=== PATIENT | male | born 1955 | race Two or more races ===

== ENCOUNTER 2021-06-20 11:46 | Inpatient (IN) | payer OTHER, MEDICAID ==
[~2021-06-20] VITALS: Ht 170.2 cm; Wt 57.0 kg
[2021-06-20] MEDS ORDERED: SODIUM CHLORIDE 0.9% 1,000 ML IVB ONE (12:15)
[2021-06-20 12:57] LABS: Basophils # (auto) 0 10 ^3/uL (0-0.2); Basophils % (auto) 0.2 % (0.0-2.0); Eosinophils # (auto) 0 10 ^3/uL (0-0.8); Eosinophils % (auto) 0.2 % (0.0-7.0); Hematocrit 37.1 % (41.0-53.0); Hemoglobin 11.7 g/dL (13.5-17.5); Lymphocytes # (auto) 2.1 10 ^3/uL (0.4-5.4); Lymphocytes % (auto) 15.1 % (10.0-50.0); Mean Corpuscular Hemoglobin 31.1 pg (28.0-32.0); Mean Corpuscular Hgb Conc. 31.6 g/dL (32.0-36.0); Mean Corpuscular Volume 98.3 fL (80.0-100.0); Monocytes # (auto) 0.6 10 ^3/uL (0-1.3); Monocytes % (auto) 4.3 % (0.0-12.0); Neutrophils # (auto) 11.1 10 ^3/uL (1.6-8.6); Neutrophils % (auto) 80.2 % (37.0-80.0); Red Blood Cells 3.77 10^6/uL (4.5-5.90); Red Cell Distribution Width 15.6 % (11.8-14.3); White Blood Cell 13.9 10^3/uL (4.4-10.8)
[2021-06-20 13:13] LABS: Albumin 4.2 g/dL (3.4-5.0); Calcium 10.3 mg/dL (8.5-10.1); Potassium 4.1 mmol/L (3.5-5.1)
[2021-06-20 13:21] LABS: BUN/Creatinine Ratio 29.6; Total Protein 8.5 g/dL (6.4-8.2)
[2021-06-20] MEDS ORDERED: ONDANSETRON HCL 4 MG/2 ML VIAL ONE (13:37)
[2021-06-20] MEDS ORDERED: ONDANSETRON HCL 4 MG/2 ML VIAL IV ONE (13:45)
[2021-06-20] MEDS ORDERED: SODIUM CHLORIDE 0.9% 1,000 ML IV ONE (14:00)
[2021-06-20 15:07] LABS: Urine Bacteria NONE SEEN /hpf (None Seen); Urine Blood Negative /uL (Negative); Urine Specific Gravity 1.028 (1.001-1.035); Urine WBC <1 /hpf (0 - 3)
[2021-06-20] MEDS ORDERED: InsuLIN R (HUMAN) 100 UNITS in SODIUM CHL 0.9% 99 ML IV SCH (15:15)
[2021-06-20] MEDS ORDERED: DEXTROSE (50%) 50ML SYRG IV PRN ×2 (15:15→23:15)
[2021-06-20] MEDS ORDERED: InsuLIN REG 1unit/0.01ml Soln (100units/ml) IV ONE (15:15)
[2021-06-20 15:29] LABS: Alcohol, Urine < 3.0 mg/dL (0-10); Amphetamine Screen, Urine NEGATIVE (NEGATIVE); Barbiturate Scree,Urine NEGATIVE (NEGATIVE); Benzodiazephine Screen, Urine NEGATIVE (NEGATIVE); Cannabinoid Screen, Urine NEGATIVE (NEGATIVE); Cocaine Screen, Urine NEGATIVE (NEGATIVE); Opiate Scree,Urine NEGATIVE (NEGATIVE); Phencyclidine Screen, Urine NEGATIVE (NEGATIVE)
[2021-06-20] MEDS: ACCU-CHEK COMFORT CURVE STRIP VI SCH ×5 (15:43→22:21)
[2021-06-20] MEDS: SODIUM CHLORIDE 0.9% 1,000 ML IV SCH ×4 (16:00→23:22)
[2021-06-20] MEDS ORDERED: SODIUM CHLORIDE 0.9% 1,000 ML IV SCH (19:15)
[2021-06-20 21:47] LABS: BUN/Creatinine Ratio 40.4; Calcium 8.3 mg/dL (8.5-10.1)
[2021-06-20] MEDS ORDERED: POTASSIUM CHL 10MEQ/50ML 50 ML IV PRN (23:15)
[2021-06-20] MEDS: InsuLIN R (HUMAN) 100 UNITS in SODIUM CHL 0.9% 99 ML IV SCH (23:15)
[2021-06-20] MEDS ORDERED: SODIUM CHLORIDE 0.9% 2,000 ML IV ONE (23:30)
[2021-06-21] MEDS ORDERED: ONDANSETRON HCL 4 MG/2 ML VIAL IV PRN
[2021-06-21] MEDS ORDERED: hydrALAZINE HCL 20 MG/ML VL IV PRN (00:15)
[2021-06-21] MEDS: ACCU-CHEK COMFORT CURVE STRIP VI SCH ×12 (00:31→23:18)
[2021-06-21] MEDS: POTASSIUM CHL 10MEQ/50ML 50 ML IV SCH ×4 (00:32→03:38)
[2021-06-21 00:49] LABS: BUN/Creatinine Ratio 32.8; Calcium 8.6 mg/dL (8.5-10.1); Magnesium 2.1 mg/dL (1.6-2.6); Phosphorus 2.5 mg/dL (2.5-4.90); Potassium 3.4 mmol/L (3.5-5.1)
[2021-06-21 00:51] LABS: Urine Bacteria NONE SEEN /hpf (None Seen); Urine Blood Negative /uL (Negative); Urine Specific Gravity 1.025 (1.001-1.035); Urine WBC 2 /hpf (0 - 3)
[2021-06-21] MEDS: D5W/SOD CHL 0.45%/KCL 20MEQ 1,000 ML IV SCH ×2 (01:30→06:27)
[2021-06-21] MEDS: SODIUM CHLORIDE 0.9% 1,000 ML IV SCH ×5 (01:31→10:11)
[2021-06-21] MEDS ORDERED: dilTIAZem 25 MG/5 ML VIAL IV ONE ×2 (01:45)
[2021-06-21] MEDS ORDERED: SODIUM CHLORIDE 0.9% 1,000 ML IV SCH (03:15)
[2021-06-21] MEDS: LABETALOL HCL 5 MG/ML 4ML SYRINGE IV PRN (04:36)
[2021-06-21] MEDS: InsuLIN R (HUMAN) 100 UNITS in SODIUM CHL 0.9% 99 ML IV SCH (05:49)
[2021-06-21] MEDS ORDERED: DEXTROSE (50%) 50ML SYRG IV PRN (06:30)
[2021-06-21] MEDS: InsuLIN REG 1unit/0.01ml Soln (100units/ml) SC SCH ×4 (07:00→21:29)
[2021-06-21] MEDS ORDERED: ACCU-CHEK COMFORT CURVE STRIP VI SCH (07:00)
[2021-06-21 09:30] VITALS: BP 160/61
[2021-06-21] MEDS ORDERED: CARVEDILOL 3.125 MG TAB PO SCH (10:00)
[2021-06-21] MEDS: FAMOTIDINE (10MG/ML) 2ML VL IV SCH (10:11)
[2021-06-21 10:12] LABS: Basophils # (auto) 0.1 10 ^3/uL (0-0.2); Basophils % (auto) 0.3 % (0.0-2.0); Eosinophils # (auto) 0 10 ^3/uL (0-0.8); Eosinophils % (auto) 0.1 % (0.0-7.0); Hemoglobin 9.1 g/dL (13.5-17.5); Lymphocytes # (auto) 1.7 10 ^3/uL (0.4-5.4); Lymphocytes % (auto) 9.3 % (10.0-50.0); Mean Corpuscular Hemoglobin 31.9 pg (28.0-32.0); Mean Corpuscular Hgb Conc. 33.6 g/dL (32.0-36.0); Monocytes # (auto) 0.9 10 ^3/uL (0-1.3); Monocytes % (auto) 5.2 % (0.0-12.0); Neutrophils # (auto) 15.4 10 ^3/uL (1.6-8.6); Neutrophils % (auto) 85.1 % (37.0-80.0); Red Blood Cells 2.84 10^6/uL (4.5-5.90); White Blood Cell 18.1 10^3/uL (4.4-10.8)
[2021-06-21] MEDS: ENOXAPARIN SOD 40 MG/0.4 ML SYRINGE SC SCH (10:13)
[2021-06-21 10:50] LABS: Potassium 3.6 mmol/L (3.5-5.1)
[2021-06-21 11:03] LABS: BUN/Creatinine Ratio 22.9; Bilirubin, Total 1.1 mg/dL (0.2-1.0); Calcium 8.1 mg/dL (8.5-10.1); Total Protein 6.2 g/dL (6.4-8.2)
[2021-06-21] MEDS ORDERED: CEFTRIAXONE SODIUM 2 GM in D5W 5% 50 ML IV ONE (11:15)
[2021-06-21] MEDS ORDERED: VANCOMYCIN 1GM/250ML 250 ML IV ONE (11:15)
[2021-06-21] MEDS ORDERED: VANCOMYCIN PER PHARMACY 0 MG IV SCH (11:15)
[2021-06-21 12:07] LABS: Calcium 8.2 mg/dL (8.5-10.1)
[2021-06-21 12:09] LABS: BUN/Creatinine Ratio 23.9
[2021-06-21] MEDS: cloNIDine HCL 0.1 MG TAB PO SCH ×3 (12:25→23:21)
[2021-06-21 18:32] LABS: BUN/Creatinine Ratio 30.2; Calcium 7.7 mg/dL (8.5-10.1); Potassium 3.6 mmol/L (3.5-5.1)
[2021-06-21 21:10] VITALS: BP 148/63
[2021-06-21] MEDS: VANCOMYCIN 1GM/250ML 250 ML IV SCH (21:24)
[2021-06-21 22:00] VITALS: BP 108/51
[2021-06-21] MEDS: ACETAMINOPHEN 325 MG TAB PO PRN (23:37)
[2021-06-22] MEDS: SODIUM CHLORIDE 0.9% 1,000 ML IV SCH ×4 (01:15→22:05)
[2021-06-22 05:00] VITALS: BP 138/49
[2021-06-22] MEDS: cloNIDine HCL 0.1 MG TAB PO SCH (05:50)
[2021-06-22] MEDS: ACCU-CHEK COMFORT CURVE STRIP VI SCH ×4 (05:50→23:39)
[2021-06-22] MEDS: InsuLIN REG 1unit/0.01ml Soln (100units/ml) SC SCH ×4 (06:04→22:16)
[2021-06-22] MEDS: VANCOMYCIN 1GM/250ML 250 ML IV SCH (08:30)
[2021-06-22] MEDS: ENOXAPARIN SOD 40 MG/0.4 ML SYRINGE SC SCH (08:31)
[2021-06-22] MEDS: FAMOTIDINE (10MG/ML) 2ML VL IV SCH (08:31)
[2021-06-22 09:00] VITALS: BP 180/63
[2021-06-22] MEDS: cefTRIAXone 1GM/50ML D5W 50 ML IV SCH (10:00)
[2021-06-22] MEDS: LABETALOL HCL 5 MG/ML 4ML SYRINGE IV PRN ×4 (10:02→22:06)
[2021-06-22 11:45] LABS: Folate (Folic Acid) > 24.00 ng/mL (5.38-24)
[2021-06-22 13:05] LABS: Basophils # (auto) 0.1 10 ^3/uL (0-0.2); Basophils % (auto) 0.5 % (0.0-2.0); Eosinophils # (auto) 0.2 10 ^3/uL (0-0.8); Eosinophils % (auto) 1.3 % (0.0-7.0); Hematocrit 23.4 % (41.0-53.0); Hemoglobin 7.8 g/dL (13.5-17.5); Lymphocytes # (auto) 1.4 10 ^3/uL (0.4-5.4); Lymphocytes % (auto) 10.3 % (10.0-50.0); Mean Corpuscular Hemoglobin 32.3 pg (28.0-32.0); Mean Corpuscular Hgb Conc. 33.5 g/dL (32.0-36.0); Mean Corpuscular Volume 96.4 fL (80.0-100.0); Monocytes # (auto) 0.5 10 ^3/uL (0-1.3); Monocytes % (auto) 3.6 % (0.0-12.0); Neutrophils # (auto) 11.2 10 ^3/uL (1.6-8.6); Neutrophils % (auto) 84.3 % (37.0-80.0); Nucleated Red Blood Cells % 0.1 %; Red Blood Cells 2.42 10^6/uL (4.5-5.90); White Blood Cell 13.2 10^3/uL (4.4-10.8)
[2021-06-22 13:17] VITALS: BP 152/73
[2021-06-22 13:26] LABS: Albumin 2.5 g/dL (3.4-5.0); BUN/Creatinine Ratio 28.6; Calcium 7.9 mg/dL (8.5-10.1); Potassium 3.2 mmol/L (3.5-5.1)
[2021-06-22 13:29] LABS: Bilirubin, Total 0.7 mg/dL (0.2-1.0); Total Protein 5.5 g/dL (6.4-8.2)
[2021-06-22 17:00] VITALS: BP 168/63
[2021-06-22] MEDS: ACETAMINOPHEN 325 MG TAB PO PRN (18:22)
[2021-06-22 22:00] VITALS: BP 167/73
[2021-06-22] MEDS: PANTOPRAZOLE 40 MG TAB PO SCH (22:05)
[2021-06-23] MEDS ORDERED: HYDROcodone-ACET 7.5/325MG TAB PO ONE ×2 (00:45→03:45)
[2021-06-23] MEDS ORDERED: hydrALAZINE HCL 20 MG/ML VL IV ONE ×2 (00:45→03:45)
[2021-06-23 05:00] VITALS: BP 159/71
[2021-06-23] MEDS: ACCU-CHEK COMFORT CURVE STRIP VI SCH ×4 (05:56→21:41)
[2021-06-23 06:12] LABS: Basophils # (auto) 0.1 10 ^3/uL (0-0.2); Basophils % (auto) 0.5 % (0.0-2.0); Eosinophils # (auto) 0.1 10 ^3/uL (0-0.8); Hematocrit 27.9 % (41.0-53.0); Hemoglobin 9.4 g/dL (13.5-17.5); Lymphocytes # (auto) 2.4 10 ^3/uL (0.4-5.4); Lymphocytes % (auto) 19.4 % (10.0-50.0); Mean Corpuscular Hemoglobin 32.4 pg (28.0-32.0); Mean Corpuscular Hgb Conc. 33.6 g/dL (32.0-36.0); Mean Corpuscular Volume 96.3 fL (80.0-100.0); Monocytes # (auto) 0.7 10 ^3/uL (0-1.3); Monocytes % (auto) 5.5 % (0.0-12.0); Neutrophils # (auto) 8.9 10 ^3/uL (1.6-8.6); Neutrophils % (auto) 73.6 % (37.0-80.0); Nucleated Red Blood Cells % 0.1 %; White Blood Cell 12.1 10^3/uL (4.4-10.8)
[2021-06-23] MEDS: SODIUM CHLORIDE 0.9% 1,000 ML IV SCH (06:24)
[2021-06-23] MEDS: InsuLIN REG 1unit/0.01ml Soln (100units/ml) SC SCH ×5 (06:37→22:17)
[2021-06-23 06:38] LABS: Calcium 8.2 mg/dL (8.5-10.1)
[2021-06-23 06:44] LABS: Albumin 2.7 g/dL (3.4-5.0); BUN/Creatinine Ratio 16.7; Bilirubin, Total 0.8 mg/dL (0.2-1.0)
[2021-06-23] MEDS: cefTRIAXone 1GM/50ML D5W 50 ML IV SCH (09:25)
[2021-06-23] MEDS: ENOXAPARIN SOD 40 MG/0.4 ML SYRINGE SC SCH (09:27)
[2021-06-23] MEDS: PANTOPRAZOLE 40 MG TAB PO SCH ×2 (09:27→21:40)
[2021-06-23] MEDS: VANCOMYCIN 750mg/250ml 250 ML IV SCH ×3 (09:27→21:39)
[2021-06-23] MEDS: VANCOMYCIN 1GM/250ML 250 ML IV SCH ×2 (09:29→21:40)
[2021-06-23] MEDS: LABETALOL HCL 5 MG/ML 4ML SYRINGE IV PRN ×3 (09:54→21:41)
[2021-06-23 11:26] VITALS: BP 157/63
[2021-06-23 12:40] VITALS: BP 161/68
[2021-06-23] MEDS: ACETAMINOPHEN 325 MG TAB PO PRN (13:44)
[2021-06-23] MEDS ORDERED: LACTULOSE 20Gm/30ML SOLN PO PRN (14:30)
[2021-06-23 16:39] VITALS: BP 161/76
[2021-06-23 22:00] VITALS: BP 175/86
[2021-06-24 05:00] VITALS: BP 162/71
[2021-06-24] MEDS: ACCU-CHEK COMFORT CURVE STRIP VI SCH ×3 (06:21→17:04)
[2021-06-24] MEDS: InsuLIN REG 1unit/0.01ml Soln (100units/ml) SC SCH ×3 (06:22→17:08)
[2021-06-24 07:53] LABS: Basophils # (auto) 0.1 10 ^3/uL (0-0.2); Basophils % (auto) 0.7 % (0.0-2.0); Eosinophils # (auto) 0.1 10 ^3/uL (0-0.8); Eosinophils % (auto) 0.8 % (0.0-7.0); Hematocrit 27.6 % (41.0-53.0); Hemoglobin 9.5 g/dL (13.5-17.5); Lymphocytes # (auto) 1.9 10 ^3/uL (0.4-5.4); Lymphocytes % (auto) 24.4 % (10.0-50.0); Mean Corpuscular Hemoglobin 32.3 pg (28.0-32.0); Mean Corpuscular Hgb Conc. 34.3 g/dL (32.0-36.0); Mean Corpuscular Volume 94.3 fL (80.0-100.0); Monocytes # (auto) 0.6 10 ^3/uL (0-1.3); Monocytes % (auto) 7.3 % (0.0-12.0); Neutrophils # (auto) 5.1 10 ^3/uL (1.6-8.6); Neutrophils % (auto) 66.8 % (37.0-80.0); Nucleated Red Blood Cells % 0.1 %; Red Blood Cells 2.93 10^6/uL (4.5-5.90); Red Cell Distribution Width 16.1 % (11.8-14.3); White Blood Cell 7.7 10^3/uL (4.4-10.8)
[2021-06-24 08:14] LABS: Calcium 8.3 mg/dL (8.5-10.1)
[2021-06-24 08:20] LABS: Albumin 2.5 g/dL (3.4-5.0); BUN/Creatinine Ratio 14.3; Bilirubin, Total 0.8 mg/dL (0.2-1.0)
[2021-06-24 08:30] LABS: Potassium 2.5 mmol/L (3.5-5.1)
[2021-06-24 09:00] VITALS: BP 98/62
[2021-06-24] MEDS: cefTRIAXone 1GM/50ML D5W 50 ML IV SCH (09:05)
[2021-06-24] MEDS: PANTOPRAZOLE 40 MG TAB PO SCH (09:05)
[2021-06-24] MEDS: ENOXAPARIN SOD 40 MG/0.4 ML SYRINGE SC SCH (09:05)
[2021-06-24] MEDS ORDERED: POTASSIUM CHL 20 Meq TABLET PO ONE ×2 (09:30→13:30)
[2021-06-24] MEDS: VANCOMYCIN 1GM/250ML 250 ML IV SCH (10:12)
[2021-06-24 13:00] VITALS: BP 148/62
[2021-06-24] MEDS ORDERED: AZIT500T66 PO (15:12)
[2021-06-24] MEDS ORDERED: ALBUAER3 IN (15:12)
[2021-06-24 17:44] VITALS: BP 140/79
== END 2021-06-24 19:50 | disposition home health service (06) | DRG 871 ==
LOC: EDBD 11:46 → ER 11:46 → OVERFLOW 06-21 00:11 → ICU WEST 06-21 09:03 → TELE-EAST 06-21 21:05
PROVIDERS: ADMIT Internal Medicine; ATTEND Internal Medicine
DX: A41.89 Other specified sepsis (principal); U07.1 COVID-19; E11.01 Type 2 diabetes mellitus with hyperosmolarity with coma; R65.21 Severe sepsis with septic shock; G93.41 Metabolic encephalopathy; J12.82 Pneumonia due to coronavirus disease 2019; G91.0 Communicating hydrocephalus; E87.4 Mixed disorder of acid-base balance; E11.43 Type 2 diabetes mellitus with diabetic autonomic (poly)neuropathy; E86.0 Dehydration; K31.84 Gastroparesis; K59.00 Constipation, unspecified; F17.200 Nicotine dependence, unspecified, uncomplicated; K62.89 Other specified diseases of anus and rectum; Z82.3 Family history of stroke; Z82.49 Family history of ischemic heart disease and other diseases of the circulatory system; Z83.3 Family history of diabetes mellitus; Z91.14 Patient's other noncompliance with medication regimen
CPT/HCPCS: 36415; 36600; 70450; 71045; 74176; 80048; 80053; 80202; 80307; 81001; 82010; 82607; 82746; 82805; 82962; 83036; 83735; 83930; 84100; 84132; 84443; 84484; 85025; 87040; 87081; 87426; 93005; 95819; 96361; 96365; 96375; 97110; 97116; 97163; 97530; 99291; G0378; J0696; J1815; J2405; J3490; J7060